=== PATIENT | male | born 1960 | race Caucasian/White ===

== ENCOUNTER 2018-08-06 06:23 | Emergency (ER) | payer OTHER ==
[~2018-08-06] VITALS: Ht 175.3 cm; Wt 108.9 kg
[~2018-08-06 06:23] MED LIST: ALBU8HFA4; CYMBALTA; FLOVENT; KLONOPIN; PROP10TA10 PO
[2018-08-06] MEDS ORDERED: GABAPENTIN 300 MG CAPS PO (06:39)
[2018-08-06] MEDS ORDERED: ADVAIR DISKU (06:39)
[2018-08-06] MEDS ORDERED: DULOXETINE HCL 60 MG PO (06:39)
[2018-08-06] MEDS ORDERED: ALLOPURINOL 100 MG (06:39)
[2018-08-06] MEDS ORDERED: LEVOTHYROXINE SODIUM 100 MCG (06:39)
[2018-08-06] MEDS ORDERED: PANTOPRAZOLE SODIUM 40 MG TBEC (06:39)
[2018-08-06] MEDS ORDERED: ALBUTEROL (06:39)
--- NOTE | 2018-08-06 06:55 | NUR ---
at bedside for MSE
--- NOTE | 2018-08-06 07:17 | NUR ---
pt was d/c to home after dr chan re-evaluation. d/c instructions given to the pt.
[2018-08-06 07:25] VITALS: BP 139/84
== END 2018-08-06 07:27 | disposition home or self-care (01) ==
LOC: ER 06:31
DX: M54.5 Low back pain (principal); J45.909 Unspecified asthma, uncomplicated; Z79.899 Other long term (current) drug therapy
CPT/HCPCS: A4663